=== PATIENT | female | born 2005 | race Caucasian/White ===

== ENCOUNTER 2025-02-04 10:42 | Emergency (ER) | payer MEDICAID ==
[~2025-02-04] VITALS: Ht 154.9 cm; Wt 51.8 kg
[2025-02-04 10:51] VITALS: TEMP 97.6
--- NOTE | 2025-02-04 11:29 | Physician Documentation ---
History of Present Illness ~ Chief Complaint: Head Injury Stated Complaint: HEAD INJURY Time Seen by MD: 11:09 HPI 19-year-old female who presents with an injury to her mouth and chin area that she sustained about an hour ago. She states that she was long boarding on a tr ail and fell off of her long board. She landed hitting her chin and mouth on an asphalt surface. She also broke her fall with her right hand and right knee. She sustained some abrasions that are bleeding on her lip and on her chin. She also chipped a couple of her front teeth. She also scraped her right hand in her right knee. She was able to get up and walk afterwards. She did not lose consciousness. Currently she has some soreness in the areas of injury but denies any severe pain. Denies any headache, nausea, vomiting or any other associated symptoms. Medication Reconciliation Allergies: Coded Allergies: No Known Allergies (Unverified , 02/04/25) Past Medical History Past Medical History: No Pertinent History Review of Systems All Other Systems at this time: Reviewed and Negative Physical Exam Vital Signs: Temperature: 97.6, Source: Temporal, Heart Rate: 96, Respiratory Rate: 18, BP: 132/108, Pulse Oximetry: 99, Weight: 51.820 Physical Exam I have reviewed the triage vitals. CONST: Well developed and well nourished. In no acute distress HENT: Head Atraumatic. Bleeding abrasions over the chin. There is some minor laceration and swelling over the lower lip. Front upper incisors slightly chipped. EYES: Pupils are equal, round and reactive to light. Normal conjunctiva NECK: Normal range of motion. Supple. CARDIO: Normal rate and regular rhythm. No murmurs, rubs, or gallops. S1, S2. PULM/CHEST: No respiratory distress. Lungs clear to auscultation. No wheeze ABD: Soft and nontender. Nondistended. Bowel sounds normal. No guarding. : Exam deferred MSK: No edema. No deformity. Abrasion and mild oozing of blood over the palm of the right hand. Abrasion and mild oozing blood over the anterior right knee. Patient has full range of motion of hands, arms come in knees, ankles and all remaining joints as well as neck and lower back without any pain. Patient is able to weight air normally without any pain. NEURO: Alert and oriented to person, place and time. Moving all extremities SKIN: Warm and dry. PSYCH: Normal mood and affect. Good eye contact. Progress Results/Orders Results/Orders Orders - DEBORAH DALTON MD Mandible,Limited Less 4vws (02/04/25 ) Completed Orders - DEBORAH DALTON MD Mandible,Limited Less 4vws (02/04/25 ) Vital Signs 02/04/25 02/04/25 10:51 11:32 Temp 97.6 Pulse 96 Resp 18 B/P (MAP) 132/108 Pulse Ox 99 Medical Decision Making Additional Comment 19-year-old female presenting with contusion and abrasions to her face right hand and right knee. The wounds were explored and then none require any repair. There are mostly superficial and should heal on their own. We did irrigate and clean the wounds and applied bacitracin and bandages. Patient is tetanus was updated. We did also perform a mandibular x-ray to rule out any fracture. The patient did chip her teeth as well and sustained some minor dental fractures. Advised to follow up with Dentistry regarding this. Otherwise the patient is ambulating and in no pain. She is stable and safe to be discharged home. I advised her to monitor her wounds for improvement and resolution. Follow up with PCP and return to the ED with any acutely worsening symptoms. Departure Disposition: 01 HOME / SELF CARE / HOMELESS Impression: Primary Impression: Facial contusion Additional Impressions: Abrasion hand Abrasion, knee Chipped tooth Condition: Improved Additional Instructions: Cover wounds and keep them clean and dry. A take ibuprofen or Tylenol as needed for any pain. May ice affected areas as well for pain. Monitor symptoms for improvement and resolution. Should you develop any severe headaches, nausea, vomiting or any other worsening symptoms please return immediately to the [facility] department. Also follow up with Dentistry regarding chipped front teeth. Referrals: NO PRIMARY CARE PROVIDER (PCP) Signature Scribe Signature: 1 Attestation: 1 DEBORAH DALTON MD Feb 04, 2025 11:29
--- NOTE | 2025-02-04 12:27 | RADIOLOGY REPORT ---
CLINICAL INDICATION: trauma TECHNIQUE: 6 radiographic views of the mandible were obtained. Comparison: None FINDINGS/IMPRESSION: There is no evidence of acute fracture or dislocation. The visualized joint space is well maintained. The alignment is anatomical. There is no radiopaque foreign body.
[2025-02-04] MEDS: TETanus/Pertussis (Acell)/Diphther VAC/PF (Tdap-Adult) 0.5ml syringe IMVAC ONE (12:32)
[2025-02-04 12:33] VITALS: BP 108/72; PULSE 91; RESP 16; O2SAT 100
== END 2025-02-04 12:35 | disposition home or self-care (01) ==
LOC: ER 10:44
DX: S01.511A Laceration without foreign body of lip, initial encounter (principal); S60.511A Abrasion of right hand, initial encounter; S80.211A Abrasion, right knee, initial encounter; W19.XXXA Unspecified fall, initial encounter; Y93.89 Activity, other specified; Y92.89 Other specified places as the place of occurrence of the external cause; Y99.8 Other external cause status
CPT/HCPCS: 70100; 99283; J7030; A6258; A6449